=== PATIENT | female | born 1945 | race Caucasian/White ===

== ENCOUNTER 2021-03-28 15:33 | Emergency (ER) | payer MEDICARE, OTHER ==
[~2021-03-28] VITALS: Ht 160 cm; Wt 103.0 kg
[~2021-03-28 15:33] MED LIST: BUPR150ER PO; COLE625 PO; DICMIS50EC PO; HYDACE5 PO; HYDACE5325 PO; LISI20 PO; MISO100 PO
== END 2021-03-28 17:37 | disposition home or self-care (01) ==
LOC: ER 15:33
DX: U07.1 COVID-19 (principal); Z23 Encounter for immunization; Z79.899 Other long term (current) drug therapy
CPT/HCPCS: 99283-25; M0243; Q0243

== ENCOUNTER 2022-02-03 18:06 | Observation (INO) | payer MEDICARE, OTHER ==
[~2022-02-03] VITALS: Ht 162.6 cm; Wt 105.3 kg
[2022-02-03 18:55] LABS: BASOPHILS ABSOLUTE AUTO 0.01 K/mm3 (0.00-0.23); BASOPHILS PERCENT AUTO 0 % (0-2); EOSINOPHILS ABSOLUTE AUTO 0.04 K/mm3 (0.00-0.68); EOSINOPHILS PERCENT AUTO 1 % (0-6); Hematocrit 35.9 % (33.0-51.0); Hemoglobin 11.1 g/dL (11.5-16.0); IMMATURE GRAN ABSOLUTE AUTO 0.03 K/mm3 (0.00-0.10); IMMATURE GRAN PERCENT AUTO 1 % (0-1); LYMPHOCYTES ABSOLUTE AUTO 0.99 K/mm3 (0.84-5.20); LYMPHOCYTES PERCENT AUTO 25 % (21-46); MONOCYTES ABSOLUTE AUTO 0.49 K/mm3 (0.16-1.47); MONOCYTES PERCENT AUTO 12 % (4-13); Mean Corpuscular HGB 27.1 pg (26.0-34.0); Mean Corpuscular HGB Conc 30.9 g/dL (31.5-36.5); Mean Corpuscular Volume 88 fL (80-100); Mean Platelet Volume 9.3 fL (9.1-12.4); NEUTROPHILS ABSOLUTE AUTO 2.46 K/mm3 (1.96-9.15); NEUTROPHILS PERCENT AUTO 61 % (41-73); Platelet Count 313 K/mm3 (150-400); RDW Standard Deviation 50.8 fL (35.1-46.3); Red Blood Cell Count 4.09 M/mm3 (3.80-5.20); White Blood Cell Count 4.02 K/mm3 (4.00-11.30)
[2022-02-03 19:12] LABS: Albumin, Blood 3.5 g/dL (3.4-5.0); Albumin/Globulin Ratio 0.8 (0.8-1.8); Bilirubin, Total 0.3 mg/dL (0.1-1.0); Bun/Creatinine Ratio 20.7 (12.0-20.0); Calcium, Blood 9.7 mg/dL (8.5-10.1); Creatinine, Blood 0.97 mg/dL (0.40-1.00); Globulin, Blood 4.3 g/dL (2.2-4.0); Potassium, Blood 4.1 mmol/L (3.5-5.5); Total Protein, Blood 7.8 g/dL (6.4-8.2)
[2022-02-04] MEDS ORDERED: Budeprion Xl300 MG PO (03:50)
[2022-02-04] MEDS ORDERED: SERT50 PO (04:54)
[2022-02-04] MEDS ORDERED: METO50 PO (04:54)
[2022-02-04] MEDS ORDERED: LISI20 PO (04:54)
[2022-02-04] MEDS ORDERED: AMLO5 PO (04:55)
[2022-02-04] MEDS ORDERED: FURO20 PO (04:55)
[2022-02-04] MEDS ORDERED: Adderall 20 MG20 MG PO (04:59)
[2022-02-04] MEDS ORDERED: AMPDEX5 PO (05:02)
[2022-02-04] MEDS ORDERED: DICL75ER PO (05:03)
[2022-02-04] MEDS ORDERED: MISO100 PO (05:05)
--- NOTE | 2022-02-04 05:10 | NUR ---
ARRIVAL TO PCU 11 PT ARRIVED TO ROOM FROM OR AT 0345. PT A/O X 4. REPORTS PAIN IN ABD 10/02. INCISION SITE C/D/I. OPEN TO AIR. MEDICATED PER EMAR. DAUGHTER JUNAID CALLED PER PT REQUEST. EDUCATED PT ON CALLING BEFORE GETTING OOB. CALL LIGHT IN REACH.
--- NOTE | 2022-02-04 05:57 | NUR ---
ASSIST PT ASSISTED TO BR. SBA FOR CORD MANAGMENT. NO OTHER CHANGES SINCE PREV NOTE.
[2022-02-04] MEDS ORDERED: Norco 5-325 Ta1 EACH PO (11:47)
--- NOTE | 2022-02-04 14:01 | NUR ---
VERBAL AND WRITTEN DISCHARGE INSTRUCTIONS GIVEN. DC'D HOME IN NO ACUTE DISTRESS.
== END 2022-02-04 13:50 | disposition home or self-care (01) ==
LOC: ER 18:06 → ERHOLD 02-04 01:09 → PCU 02-04 03:42
PROVIDERS: Physician Assistant; ADMIT Surgery
PROC: 0WQF0ZZ Repair Abdominal Wall, Open Approach (ICD-10-PCS; principal; 2022-02-04 01:30)
DX: K43.0 Incisional hernia with obstruction, without gangrene (principal); F32.A Depression, unspecified; Z96.652 Presence of left artificial knee joint; R19.00 Intra-abdominal and pelvic swelling, mass and lump, unspecified site
CPT/HCPCS: 36415; 74177; 80053; 83605; 83690; 85025; 93005; 93010; 94640; 94664; 96361; 96374-59; 96375; 96376; 99285-25; A9270; G0378; J1100; J1650; J2370; J2405; J2704; J3010; J3475; J7120; Q9967

== ENCOUNTER → 2022-06-26 | Outpatient (CLI) | payer MEDICARE, OTHER ==
[~2022-06-26] MED LIST changes: +AMLO5 PO; +AMPDEX5 PO; +Adderall 20 MG20 MG PO; +Budeprion Xl300 MG PO; +DICL75ER PO; +FURO20 PO; +METO50 PO; +Norco 5-325 Ta1 EACH PO; +SERT50 PO
== END | disposition home or self-care (01) ==
LOC: LAB 08:10 → LAB SHORT 08:10
DX: H16.002 Unspecified corneal ulcer, left eye (principal)
CPT/HCPCS: 87070; 87186; 87205

== ENCOUNTER → 2023-05-24 | Outpatient (CLI) | payer OTHER ==
[2023-05-24 19:22] LABS: BASOPHILS ABSOLUTE AUTO 0.03 K/mm3 (0.00-0.23); BASOPHILS PERCENT AUTO 1 % (0-2); EOSINOPHILS ABSOLUTE AUTO 0.13 K/mm3 (0.00-0.68); EOSINOPHILS PERCENT AUTO 2 % (0-6); Hematocrit 35.2 % (33.0-51.0); Hemoglobin 11.2 g/dL (11.5-16.0); IMMATURE GRAN ABSOLUTE AUTO 0.11 K/mm3 (0.00-0.10); IMMATURE GRAN PERCENT AUTO 2 % (0-1); LYMPHOCYTES ABSOLUTE AUTO 1.64 K/mm3 (0.84-5.20); LYMPHOCYTES PERCENT AUTO 26 % (21-46); MONOCYTES PERCENT AUTO 11 % (4-13); Mean Corpuscular HGB 29.2 pg (26.0-34.0); Mean Corpuscular HGB Conc 31.8 g/dL (31.5-36.5); Mean Corpuscular Volume 92 fL (80-100); Mean Platelet Volume 9.6 fL (9.1-12.4); NEUTROPHILS ABSOLUTE AUTO 3.74 K/mm3 (1.96-9.15); NEUTROPHILS PERCENT AUTO 59 % (41-73); Platelet Count 346 K/mm3 (150-400); RDW Standard Deviation 46.7 fL (35.1-46.3); Red Blood Cell Count 3.83 M/mm3 (3.80-5.20); White Blood Cell Count 6.35 K/mm3 (4.00-11.30)
[2023-05-24 19:47] LABS: Percent Saturation 15.8 % (15.0-50.0)
[2023-05-26 14:12] LABS: CALCIUM, SERUM 9.8 mg/dL (8.7-10.3); CREATININE, SERUM 1.6 mg/dL (0.57-1.00); POTASSIUM, SERUM 5.2 mmol/L (3.5-5.2)
== END | disposition home or self-care (01) ==
LOC: LAB 17:40 → LAB SHORT 17:40
PROVIDERS: Family Medicine
DX: K59.1 Functional diarrhea (principal); R15.2 Fecal urgency; Z86.39 Personal history of other endocrine, nutritional and metabolic disease; Z87.898 Personal history of other specified conditions
CPT/HCPCS: 80048; 82728; 83540; 83550; 83735; 85025